=== PATIENT | male | born 1980 | race Caucasian/White ===

== ENCOUNTER 2022-12-03 14:21 | Emergency (ER) | payer MEDICARE, MEDICAID, SELFPAY ==
[2022-12-03] VITALS (7 sets, daily range): BP systolic 165–172; BP diastolic 111–114; PULSE 87–97; RESP 18; TEMP 36.5–36.6; O2SAT 98–100; BMI 26.8
--- NOTE | 2022-12-03 14:47 | XRR_ITS ---
PROCEDURE INFORMATION: Exam: XR Left Hip Exam date and time: 12/03/2022 2:51 PM Age: 41 years old Clinical indication: Hip pain; Left hip; Additional info: Pain/one view pelvis too please TECHNIQUE: Imaging protocol: Radiologic exam of the left hip. Views: 2 or 3 views hip with pelvis when performed. COMPARISON: No relevant prior studies available. FINDINGS: Bones/joints: No acute fracture or dislocation. Focal convexity at bilateral femoral head-neck junctions. Joint spacing and alignment are maintained. Mild lower lumbar spine degenerative changes. Soft tissues: Unremarkable. XR/XR hip LT 2-3V wo/w pel* [id number] IMPRESSION: 1. No acute fracture or dislocation. 2. Bilateral cam morphology.
--- NOTE | 2022-12-03 14:48 | W.ED.EXTPRO ---
HPI - Extremity Problem General: Chief complaint: Extremity Problem,Nontraumatic Stated complaint: Hip pain Joint pain X 3 weeks Time Seen by Provider: 12/03/22 14:23 Source: patient Mode of arrival: wheelchair Limitations: no limitations History of Present Illness: Patient is a 41-year-old male who presents to ED today with a complaint of left hip pain over the past 3 weeks. He states he did not have any known injury or trauma to the joint prior to it hurting. He states over 3 weeks. Pain has progressively worsened and over the past few days he has been unable to ambulate secondary to pain. He states he was seen at a walk-in facility a few days ago and given prescriptions for oxycodone, flexeril, and prednisone-he states these are not helping. Patient reports a longstanding history of chronic back pains. He chronically uses a cane for ambulation. He has had issues with his sciatica in the past. He feels like the pain in his hip joint is not originating from his back. Patient is not running fevers. He has not noticed any redness or warmth to the joint. No recent illness. No drug use. MD Complaint: joint pain Onset (ago): week(s) Pain Consistency: constant Location: left and lower extremity Severity scale (1-10): 10 Radiation: none Relieving factors: other (reports leaning over a table or truck bed with his legs dangling over the side) Exacerbating factors: range of motion and weight bearing Associated symptoms: Reports no associated symptoms; Deny chest pain, fever(s) or rash Review of Systems Const: Denies: fever(s), chills, body aches, fatigue or malaise Card: Denies: chest pain Resp: Denies: dyspnea GI: Denies: abdominal pain : Denies: flank pain, dysuria or hematuria Musc: Reports: back pain (chronic), joint pain and limited range of motion; Denies: neck pain, extremity pain, extremity swelling, joint swelling, joint redness or joint warmth Skin/Breast: Denies: rash Neuro: Reports: difficulty walking; Denies: headache(s), numbness in extremities, weakness in extremities, sensory changes or lack of coordination Physical Exam Const: COMMON NORMALS: average body habitus, patient oriented x3, no limitations, healthy appearing, alert and well nourished GENERAL APPEARANCE: cooperative and in distress (appears uncomfortable secondary to pain) ORIENTATION/CONSCIOUSNESS: Yes awake, Yes oriented to person, Yes oriented to place and Yes oriented to time HENMT: COMMON NORMALS: normocephalic and atraumatic HEAD & SCALP: normal to inspection, normocephalic and atraumatic Back/Pelvis: COMMON NORMALS: thoracic and lumbar spine normal to inspection, no thoracic nor lumbar tenderness and thoraco-lumbar ROM normal LUMBAR SPINE/LOWER BACK: No lumbar spinal tenderness, No paraspinal muscle tenderness, No paraspinal muscle spasm and Yes straight leg raise negative bilaterally PELVIS: Yes buttocks normal and Yes sciatic notch tenderness SACRUM: no tenderness COCCYX: no tenderness Extremity: COMMON NORMALS: normal to inspection, capillary refill normal, no joint enlargement, no clubbing, cyanosis or edema and no calf tenderness GENERAL: Yes normal exam except as noted LEFT LOWER EXTREMITY: Yes hip joint Left hip: Yes inspection (no erythema/warmth noted), Yes ROM (limited ROM secondary to pain; + FABIR testing) and Yes neurovascular exam (normal) Neuro: COMMON NORMALS: patient oriented x3, moves all extremities, no focal motor deficits and no sensory deficits noted SENSORIUM/ORIENTATION: Yes alert, Yes oriented to person, Yes oriented to place and Yes oriented to time GAIT: Yes Unable to assess gait MOTOR EXAM: 5/5 motor strength present throughout DEEP TENDON REFLEXES: Right patellar reflex intensity grade: 2+, Left patellar reflex intensity grade: 2+, Right ankle reflex intensity grade: 2+ and Left ankle reflex intensity grade: 2+ Course Vital Signs: Vital signs: Vital Signs Temperature 97.9 F 12/03/22 14:34 Pulse Rate 97 12/03/22 14:29 Respiratory Rate 18 12/03/22 15:46 Blood Pressure 172/113 12/03/22 16:00 Pulse Oximetry 99 12/03/22 15:04 Oxygen Delivery Me thod Room Air 12/03/22 15:04 MDM - Extremity (Nontraumatic) Medical Decision Making Patient is a 41-year-old male here for complaints of left hip pain over the past 3 weeks. At this time there is nothing on patient's history and physical exam to suggest emergent process such as septic arthritis or aortoiliac insufficiency. Neurologically he is intact. XR showing cam morphology to femoral head raising suspicion for femoral acetabular impingement. He did have pain with FADIR testing. Will place referral to orthopedics for further evaluation/management. Lab Data Radiology Impressions Hip/Pelvis X-Ray 12/03/22 14:47 IMPRESSION: 1. No acute fracture or dislocation. 2. Bilateral cam morphology. 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 Condition: Stable Prescriptions: New Valium 5 mg tablet 5 mg PO TID PRN (Reason: muscle spasm) Qty: 15 0RF Continued ibuprofen 800 mg tablet 800 mg PO Q8H prednisone 20 mg tablet 60 mg PO DAILY 5 Days Qty: 15 0RF oxycodone-acetaminophen [Percocet] 5-325 mg tablet 1 tab PO Q4H PRN (Reason: pain) 7 Days Qty: 28 0RF Discontinued hydrocodone-acetaminophen 5-300 mg tablet 1 tab PO Q8H PRN (Reason: Pain) cyclobenzaprine 10 mg tablet 10 mg PO TID PRN (Reason: muscle spasm) Qty: 30 0RF No Action B Complete Tablet 1 tab PO DAILY potassium citrate 99 mg Capsule 99 mg PO DAILY Rx Instructions: otc version Discharge Orders: Discharge ED (Routine); Ordered 12/03/22 Ordered By: Noemi Luque Referrals: Hussain Rosenthal [Referring] - Patient Instructions: Hip Impingement (ED), Opioid Safety, Pain Management Activity Restrictions/Additional Instructions: As we discussed case management should reach out to you early this week to help set you up with your follow-up orthopedic appointment for further evaluation and treatment of your hip pain. Coding Level of Care Code ED Relocation Director for Clare Tobias
[2022-12-03] MEDS: morphine 4 mg/mL SDV 1 mL IVP (14:59)
[2022-12-03] MEDS: diazePAM 5 mg Tablet PO (15:01)
[2022-12-03] MEDS: ketorolac 60 mg/2 mL INJ 30 MG IVP (15:01)
[2022-12-03] MEDS: dexamethasone 10 mg/mL INJ 8 MG IV (15:02)
[2022-12-03] MEDS: HYDROmorphone 1 mg/mL INJ 1 mL IVP (15:46)
[2022-12-03] MEDS: orphenadrine 30 mg/mL Inj 2 mL 60 MG IVP (16:25)
--- NOTE | 2022-12-05 07:32 | DCPLANNER ---
Addendum entered by Nina Yan 12/09/22 08:55: Patient had a follow up appointment scheduled with ortho - patient did attend appointment. Addendum entered by Nina Yan 12/06/22 10:47: Patient has a follow up appointment scheduled for Tuesday, December 06, 2022 at 11:15 with Ruddy at ortho. Original Note: janitorial account manager had message to schedule a follow up appointment for patient with ortho. janitorial account manager sent patients information to the front office staff at ortho. Patients information will be printed and reviewed. Clinic will call patient with appointment information.
--- NOTE | 2022-12-06 10:36 | DCPLANNER ---
training program manager was triggered to call patient due to no primary care physician - patient has a establishing appointment scheduled for December.
== END 2022-12-03 16:59 | disposition home or self-care (01) ==
PROVIDERS: Emergency Provider Physician Assistant
DX: M25.852 Other specified joint disorders, left hip (principal)
CPT/HCPCS: 73502; 96374; 96375; 99284; 99291; J1100; J1170; J1885; J2270; J2360

== ENCOUNTER → 2022-12-06 11:01 | Outpatient (BNVA) | payer MEDICARE, MEDICAID, SELFPAY | PROVIDERS: Referring Provider Physician Assistant; Visit Provider Nurse Practitioner Family | DX: M54.50 Low back pain, unspecified (principal); M79.605 Pain in left leg; M25.852 Other specified joint disorders, left hip | CPT/HCPCS: 99214 ==

== ENCOUNTER 2022-12-07 16:23 | Outpatient (CLI) | payer MEDICARE, MEDICAID, SELFPAY ==
--- NOTE | 2022-12-07 16:45 | MR_ITS ---
WS: [id number] MRI LUMBAR SPINE NONCONTRAST TECHNIQUE: Sagittal T1, T2 and STIR imaging. Axial T1 and T2 imaging. CLINICAL INFORMATION: lumbar pain COMPARISON: None. FINDINGS: Mild lumbar curve. No acute compression. Disc bulging worse L4-L5 and L5-S1. L1-L2: Mild facet arthropathy. Spinal canal and foramen are patent. L2-L3: No significant disc bulging. Mild facet arthropathy. Spinal canal and foramen are patent. L3-L4: Minimal annular bulging. Mild facet arthropathy. Tiny RIGHT foraminal protrusion with mild RIG HT foraminal narrowing. L4-L5: LEFT central and pericentral disc protrusion impinges the traversing LEFT greater than RIGHT L 5 nerve roots in the subarticular recess. Moderate central canal stenosis. Moderate facet arthropathy . Mild LEFT greater than RIGHT foraminal narrowing. L5-S1: Shallow RIGHT pericentral protrusion impinges the traversing S1 nerve root in the subarticular recess. Moderate facet arthropathy. Mild central canal stenosis. Foramen are patent. Visualized pelvic bony structures: Normal. Paravertebral soft tissues: Normal. MR/MR lumbar spine wo con* [id number] IMPRESSION: 1. Mild lumbar curve. No acute compression. 2. Moderate to severe central canal stenosis L4-L5 with a central LEFT pericen tral disc protrusion. This impinges the traversing LEFT greater than RIGHT L5 n erve roots in the subarticular recess. 3. Mild LEFT L4-L5 foraminal narrowing. 4. Shallow RIGHT subarticular protrusion L5-S1 impinges the traversing S1 nerv e root in the subarticular recess 5. Tiny RIGHT foraminal protrusion L3-L4 with mild RIGHT foraminal narrowing. 6. Moderate facet arthropathy L3-L5.
== END 2022-12-07 16:24 | disposition home or self-care (01) ==
PROVIDERS: Visit Provider Nurse Practitioner Family
DX: M51.27 Other intervertebral disc displacement, lumbosacral region (principal); M79.605 Pain in left leg; M48.061 Spinal stenosis, lumbar region without neurogenic claudication; M47.816 Spondylosis without myelopathy or radiculopathy, lumbar region
CPT/HCPCS: 72148; 99214

== ENCOUNTER → 2022-12-20 08:27 | Outpatient (BNVA) | payer MEDICARE, MEDICAID, SELFPAY | PROVIDERS: PCP Family Medicine; Visit Provider Physician Assistant | DX: M79.605 Pain in left leg; M48.061 Spinal stenosis, lumbar region without neurogenic claudication; Z01.818 Encounter for other preprocedural examination | CPT/HCPCS: 36415; 72110; 80053; 81003; 83036; 85025; 99203 ==

== ENCOUNTER 2022-12-23 07:08 | Outpatient (CLI) | payer MEDICARE, MEDICAID, SELFPAY ==
--- NOTE | 2022-12-23 07:15 | MR_ITS ---
WS: [id number] EXAMINATION: MR hip LT wo con* [id number] ORDER DATE: 12/23/2022 7:15 AM COMPARISON: None. HISTORY: cam morphology CONTRAST: Comparison 12/03/2022 TECHNIQUE: Coronal STIR of the Pelvis. Coronal proton density, coronal T1, axial T2 fat sat, axial T1 , sagittal T2 fat sat, and sagittal T1 performed of the hip. FINDINGS: Bilateral femoral neck and morphology unchanged as the prior radiograph. Osseous prominence at the fe moral head-neck junction compatible with CAM femoral acetabular impingement morphology. This is sligh tly more pronounced on the right. Mild irregularity of the anterior superior labrum bilaterally right greater than left. No subchondral cystic change in the femoral head or acetabulum. Normal bone marrow signal in the femoral heads and neck. No acute edema. Mild degenerative narrowing both hips. No significant joint effusion. No evidence of avascular necrosis. Visualized pubic rami ap pear normal. Normal bone marrow signal in the sacrum and pelvic bony structures. Normal iliac wings. A few prominent left inguinal lymph nodes likely reactive. Subcutaneous edema in the left inguinal re gion. No fluid collections. IMPRESSION: * Bilateral femoral head neck CAM morphology with bony prominence at the anterosuperior head-neck ju nction and mild irregularity of the right greater than left anterosuperior labrum. * No evidence of underlying edema in the femoral head neck or acetabulum. No subchondral cystic pettit ges. * No evidence of avascular necrosis. * Normal sacrum and iliac wings.
== END 2022-12-23 07:09 | disposition home or self-care (01) ==
PROVIDERS: PCP Family Medicine; Visit Provider Nurse Practitioner Family
DX: M25.852 Other specified joint disorders, left hip (principal)
CPT/HCPCS: 73721

== ENCOUNTER 2022-12-30 12:46 | Observation (INO) | payer MEDICARE, MEDICAID, SELFPAY ==
[2022-12-29 10:24] VITALS: BMI 26.8
[2022-12-30] VITALS (23 sets, daily range): BP systolic 128–166; BP diastolic 77–120; PULSE 70–101; RESP 15–20; TEMP 36.3–36.9; O2SAT 95–100
--- NOTE | 2022-12-30 | XR_ITS ---
WS: [id number] EXAMINATION: XR lumbar spine 1V [id number] REASON FOR EXAM: open decompression L4-S1 COMPARISON: None available. ORDER DATE: 12/30/2022 12:00 AM FINDINGS: Surgical instrumentation superimposes the L4 to upper sacral level for disc localization for surgical intervention IMPRESSION: Total fluoroscopy time 7.8 seconds
--- NOTE | 2022-12-30 09:55 | W.PM.OPSUD ---
Surgery/Procedure H&P Update DATE OF PROCEDURE: December 30, 2022 DATE H&P PERFORMED: 12/20/22 H&P UPDATE INFORMATION: I have reviewed H&P completed within last 30 days, I have examined patient prior to procedure and No changes to prior documentation PREOP DIAGNOSIS: Lumbar stenosis, HNP L4-5, L5-S1 PLANNED PROCEDURE: Operation Date: 12/30/22 10:55 Proposed Procedures p [id number]: Open decompression of the L4/5 and L5-S1(L5-S1) level M51.27:Herniation of intervertebral disc between L5-S1,m51.26: Hernated nucleus pulposus L4/5, M48.062: Lumbar Stenosis(Not Applicable) - Tyrone Florez, DO
[2022-12-30] MEDS: sodium chloride 0.9% 1,000 ML 30 ML IV (09:59)
[2022-12-30] MEDS: ceFAZolin 2,000 MG in sodium chloride 0.9% (plus) 50 ML 100 MG IV ×2 (10:17→18:46)
[2022-12-30] MEDS: lidocaine-epi 2% 20 mL INJ INJECTION (10:40)
[2022-12-30] MEDS: vancomycin 1,000 MG SDV 1000 MG INTRA-ARTI (10:55)
--- NOTE | 2022-12-30 10:57 | ANES.PREANE2 ---
Pre-Anesthetic Assessment Height/Weight: Height 1.88 m Weight 94.801 kg Temp Pulse Resp BP Pulse Ox O2 Del Method 98.4 F 96 16 137/98 100 Room Air 12/30/22 09:41 12/30/22 09:41 12/30/22 09:41 12/30/22 09:41 12/30/22 09:41 12/30/22 09:41 Preop Diagnosis: Lumbar stenosis, HNP L4-5, L5-S1 Operation Date: 12/30/22 10:55 Proposed Procedures p [id number]: Open decompression of the L4/5 and L5-S1(L5-S1) level M51.27:Herniation of intervertebral disc between L5-S1,m51.26: Hernated nucleus pulposus L4/5, M48.062: Lumbar Stenosis(Not Applicable) - Tyrone Florez DO Familial anesthetic complications: none Was Beta Donavan taken within 24 hours: N/A Was Clonidine taken within 24 hours: N/A Last intake: Intake Last Liquid Date 12/29/22 Last Liquid Time 21:30 Last Solid Date 12/29/22 Last Solid Time 18:00 Social Tobacco and No alcohol Exam alert, oriented x 3, clear to auscultation bilaterally and regular rate & rhythm Airway Submandibular: within normal limits Cervical ROM: within normal limits Mallampati: Class II Dentition: chipped Musc/skel Lower Back Pain Anesthetic Plan ASA status: 2 Anesthesia: General Medications/Allergies Home Medications Medication Instructions Recorded Confirmed Last Taken Type ibuprofen 800 mg tablet 800 mg PO Q8H 12/01/22 12/29/22 12/27/22 History potassium citrate 99 mg capsule 99 mg PO DAILY 12/03/22 12/30/22 12/23/22 History vitamin B complex 1 tab PO DAILY 12/03/22 12/30/22 12/23/22 History pregabalin 50 mg capsule (Lyrica) 50 mg PO BID #30 caps 12/16/22 12/29/22 12/29/22 Rx cyclobenzaprine 10 mg tablet 10 mg PO TID PRN back pain #30 tabs 12/20/22 12/30/22 12/29/22 Rx tramadol 50 mg tablet 50 mg PO Q4H PRN pain #30 tabs 12/20/22 12/29/22 12/29/22 Rx Allergies Allergy/AdvReac Type Severity Reaction Status Date / Time No Known Allergies Allergy Verified 12/30/22 09:39 Current Medications Generic Name Dose Route Start Last Admin Trade Name Christiano PRN Reason Stop Dose Admin Sodium Chloride 1,000 mls @ 30 mls/hr 12/30/22 09:30 12/30/22 09:59 Sodium Chloride 0.9% IV 12/31/22 09:29 30 mls/hr .Q24H ARLYN Administration PFSH Anesthesia Medical History DDD (degenerative disc disease), lumbar Herniated nucleus pulposus, L4-5 Herniated nucleus pulposus, L5-S1 Lumbar pain with radiation down left leg Surgical History No pertinent past surgical history Family History Other Diabetes Hyperlipidemia Hypertension Denies family history of CAD (coronary artery disease) Clotting disorder Dementia Psychiatric illness Chronic kidney disease (CKD) Anesthesia complication Bleeding disorder Lung disease Cancer Stroke Social History Smoking and tobacco status: current some day smoker cigars Alcohol intake: current Alcohol intake frequency: few times a month Alcohol type: beer Substance/Drug Use: never Lives independently: Yes Marital status: Number of children: 3 Current occupational status: disabled Special bharathi needs: No Agree to transfusion: Yes Data Anesthesia Cardiac Studies: No Data to Display
--- NOTE | 2022-12-30 12:22 | PM.OP ---
Operative Report Date of procedure: December 30, 2022 Pre-op diagnosis: Preop Diagnosis Lumbar stenosis, HNP L4-5, L5-S1, radiculopathy Post-op diagnosis: same Procedure done: 1. L4-5 laminectomy with partial facetectomies and discectomy 2. L5-S1 laminectomy with partial facetectomies and discectomy Surgeon: Tyrone Florez Transportation Operations Manager: none Estimated blood loss (mL): 150 Procedure: 1. L4-5 laminectomy with partial facetectomies and discectomy 2. L5-S1 laminectomy with partial facetectomies and discectomy Patient was brought to the operative suite after going anesthesia was placed in the prone position. All his impingement well-padded. Patient's prepped draped in a sterile fashion. Skin incision was made from L4 down to S1. Thoracolumbar fascia was identified and split. The subperiosteal dissection was made out to the L4-5 and L5-S1 facets. Retractors were placed. Microscope was brought in. Attention was first brought to the L4-5 level. The high-speed bur was used to take down the lamina as well as the spinous process. The medial aspect of facet joints were taken down with a high-speed bur as well. The Kerrison rongeur was then used to take the remaining lamina and medial aspect of facet joints. The L4 nerve was traced outside the L4-5 foramen this was done bilaterally. A D'Errico retractor was then used to retract the L5 nerve root on the left side. Disc was identified and microdiscectomy was performed using the curved curette and the micropituitary. This space was irrigated. All loose fragments were removed. L5 nerve was then traced around the L5 pedicle bilaterally. Next attention was brought to the L5-S1 level. Again the spinous process was taken down and then the lamina was performed using high-speed bur as well as taken down the medial aspects of the facet joints at L5-S1. The Kerrison rongeur was then used to take down the remaining lamina as well as medial aspect of the facet joint bilaterally. A D'Errico was then placed to retract the S1 nerve root and the this was done on the right side discectomy was performed using a knife and micropituitary and again the disc base was irrigated. The L5 nerve was traced around the L5-S1 foramen. And the S1 nerves were traced around the S1 pedicles bilaterally. Wounds were irrigated deep drain was placed vancomycin powder was placed wound closed in layered fashion with 0 Vicryl 2-0 Vicryl and Monocryl suture. Sterile dressings were applied patient was transferred to the PACU in stable condition.
[2022-12-30] MEDS: fentaNYL 50 mcg/mL INJ 2mL IVP (13:12)
[2022-12-30] MEDS: HYDROcodone-acetaminophen 5-325 mg Tablet PO ×3 (14:43→23:52)
[2022-12-30] MEDS: lactated ringers 1,000 ML 90 ML IV ×2 (14:44→23:52)
[2022-12-30] MEDS: cyclobenzaprine 10 mg Tablet PO (14:44)
[2022-12-30] MEDS: ketorolac 30 mg/mL INJ IVP (14:44)
--- NOTE | 2022-12-30 15:00 | ANE.PACU2 ---
Inpatient post-anesthesia follow up: Airway intact: Yes Vital signs: Temperature 97.8 F Pulse Rate 71 Respiratory Rate 18 Blood Pressure 159/100 Pulse Oximetry 97 Oxygen Delivery Me thod Room Air Oxygen Flow Rate 8 Fraction of Inspir ed Oxygen Hydration adequate: Yes Nausea and vomiting: No Pain level: 3 Mental status: Baseline
[2022-12-30] MEDS: cloNIDine 0.1 mg Tablet PO (16:29)
[2022-12-30] MEDS: morphine 4 mg/mL SDV 1 mL 2 MG IVP ×2 (16:31→21:49)
[2022-12-30] MEDS: pregabalin 50 mg Capsule PO (18:46)
[2022-12-30] MEDS: docusate sodium 100 mg Capsule PO (18:46)
[2022-12-31] MEDS: ceFAZolin 2,000 MG in sodium chloride 0.9% (plus) 50 ML 100 MG IV (02:56)
[2022-12-31 05:15] VITALS: BP 144/89; PULSE 86; RESP 19; TEMP 36.7; O2SAT 99
[2022-12-31 08:00] VITALS: BP 149/91; PULSE 85; RESP 18; TEMP 36.6; O2SAT 99
[2022-12-31] MEDS: docusate sodium 100 mg Capsule PO (08:47)
[2022-12-31] MEDS: HYDROcodone-acetaminophen 5-325 mg Tablet PO (08:47)
--- NOTE | 2022-12-31 10:48 | P.DS_ITS ---
Discharge Providers Date of Admission: 12/30/22 12:46 Date of Discharge: December 31, 2022 Attending Provider at Admission: Tyrone Florez DO Attending Provider at Discharge: Tyrone Florez DO Primary Care Provider: Jairon Adrian MD Physical Exam Narrative: Patient sitting up comfortable in chair doing well Strength. Discharge Data Studies Completed and Pending Completed Studies During Hospitalization Category Date Time Status XR lumbar spine 1V 11154 Routine Exams 12/30/22 Completed Pending at discharge Category Date Time Status C-arm Fluoroscopy 17256 Routine Exams 12/30/22 09:27 Taken Vitals Last Vital Signs Temp 97.9 F 12/31/22 08:00 Pulse 85 12/31/22 08:00 Resp 18 12/31/22 08:00 BP 149/91 12/31/22 08:00 Pulse Ox 99 12/31/22 08:00 O2 Del Method Room Air 12/31/22 08:00 O2 Flow Rate 8 12/30/22 12:39 Discharge Plan Discharge Condition: Stable Prescriptions: New hydrocodone-acetaminophen 5-325 mg tablet 1 - 2 tab PO .Q4-6H Qty: 40 0RF cyclobenzaprine 10 mg tablet 10 mg PO BID PRN (Reason: muscle spasm) 30 Days Qty: 60 0RF Lyrica 50 mg capsule 50 mg PO BID 30 Days Qty: 60 0RF Continued ibuprofen 800 mg tablet 800 mg PO Q8H tramadol 50 mg tablet 50 mg PO Q4H PRN (Reason: pain) Qty: 30 0RF cyclobenzaprine 10 mg tablet 10 mg PO TID PRN (Reason: back pain) Qty: 30 0RF pregabalin [Lyrica] 50 mg capsule 50 mg PO BID Qty: 30 0RF vitamin B complex Tablet 1 tab PO DAILY potassium citrate 99 mg Capsule 99 mg PO DAILY Rx Instructions: otc version Discharge Orders: Discharge Order (Routine); Ordered 12/31/22 Ordered By: Tyrone Florez Other Ambulatory Orders: Physical Therapy Eval and Treat Outpatient (Order) Timeframe: 1 Month Facility: [facility] - Location: Physical Therapy Ordered By: Tyrone Florez Discharge Diet: Advance as tolerated Discharge Activity: Limit activity as instructed Patient Instructions: Opioid Safety Activity Restrictions/Additional Instructions: [facility] The following is a list of instructions, from your provider, to follow upon your discharge to ensure you have the optimal recovery from your recent injury orsurgery. Follow-up care is a mi part of your treatment and safety. Be sure to make and go to all appointments, and call your doctor if you are having problems. If you do not already have a follow-up appointment made, call Dr. Florez office in the next 1-3 days to make follow up appointment for 2 weeks at [phone]. It is also a good idea to know your test results and keep a list of the medicines you take. Medications will be prescribed for you at your provider's discretion. These medications are to be used as instructed; if they are taken more often that prescribed they will not be refilled early and in most cases will not be refilled at all. > When a refill is needed,you should contact tammy johnson 2-3 business days before your prescription runs out. Medications will NOT be refilled by iron molder helper providers after hours! > Many pain medications contain Tylenol (Acetaminophen). Do not consume more than 4,000 mg of Tylenol per day in total with any combination ofmedications. > Pain medications can cause constipation. Please use an over the counter stool softener as directed, while taking pain medications. Consulty our local pharmacist with questions or recommendations on stool softeners. If constipation persists, contact our office or your primary care provider. > While under our care,you are not to receive pain medications or other controlled substances from any other provider unless our office is notified and approves. Any attempts to do so will result in refusal to prescribe any further pain medications and possible dismissal from our practice. ? Your wound and/or dressing should remain clean and dry for 2 days after surgery. On postoperative day 2 (48 hours after your surgery) the dressing (if present) should be removed and it is okay to shower and get the incision wet. Pad dry afterwards. No further dressing should be required from that point on. Do not put any creams or ointments on theincision > It is normal for there to be a small amount of discharge (bloody or blood tinged) present from a surgical wound for the first 1-3days. > The wound should be examined twice a day for signs of infection. Mild redness or bruising is to be expected but indications that an infection maybe starting would include; An increase in redness, swelling, or discharge, a foul odor present around the incision, and/or a fever greater than 101 ?F ? Showering is permitted, however we ask that you do not take a bath, sit in a whirlpool / Jacuzzi, or go swimming for 1 month. For only the first 2 days after surgery, lt wilt be necessary for you to cover your wound/dressing with plastic and tape to keep it dry. ? Walking is essential for the healing process after surgery. We would like you to slowly advance your walking. This should be done on relatively flat clear ground (inside or out) or can be done on a treadmill. Remember this goal does not have to happen all at once, slowly increase your distance and duration. This can be broken into more more than one walk per day as tolerated. Patients who walk as directed after surgery rarely require Physical Therapy. In the unlikely event this issue arises your provider will direct hospital staff to make the appropriate arrangements. ? No lifting over 5 pounds {a gallon of milk) or bending/twisting until further notice. Each of these activities places an unnecessary amount of stress onto the body and can impede the delicate healing process. > Instead of bending at the waist, keep your back straight and bend at the knees. > Instead of twisting your torso, keep your back straight and turn your entire body with your feet. ? You may sleep in any position which makes you comfortable. Many patients find comfort sleeping in a reclining chair. It is not abnormal to have difficulty sleeping for the first several weeks following your surgery. We recommend trying Benadry! or Tylenol PM as directed to help with your sleeping difficulties. Both medications are over the counter and available withoutprescription. ? NO SMOKING!!! Smoking dramatically increases the probability of developing postoperative wound infections. ? Common complaints after lumbar and/or thoracic spine surgery include, but are not limited to: numbness and/or tingling in the legs, pain around the incision and surrounding tissues, muscle spasms, or stiffness of the middle to low back. Contact our office if these symptoms persist or if an acute change occurs. ? No driving for the first 3-5days, and not while taking narcotics until seen at your follow-up appointment and cleared. There are no restrictions for riding on short trips, however if you take a longer trip, arrangements should be made to make regular stops to get out of the vehicle and stretch . ? Swelling is an unfortunate event that will take place with any surgery and is the primary source of your postoperative discomfort. While walking and regular approved activities helps control inflammation, there are additional steps you can take to minimizeswelling. > Place ice over the surgical site and surrounding tissue for twenty minutes, followed by applying a low/medium heat (heating pad) for an additional twenty minutes every 1-2 hours as needed for painrelief. > You may use of over the counter anti-inflammatory medications (Ibuprofen, Motrin, Aleve, Advil, etc) as directed on the package label. These types of medicines wm significantly reduce the amount of discomfort you experience after surgery from swelling. It should be noted that if you have and allergy to any of these medications, or a history of ulcers or kidney disease you should consult you primary care provider prior to starting these medications. Discharge Attestations Time Spent in Discharge Care*: less than 30 min Quality Metrics Clinical Quality Measures [ No reported AMI, CVA or VTE this stay] Coding Level of Care Code Acute Code for Chg Fwd Diagnoses
--- NOTE | 2022-12-31 10:49 | P.DS_ITS ---
Discharge Providers Date of Admission: 12/30/22 12:46 Date of Discharge: December 31, 2022 Attending Provider at Admission: Tyrone Florez DO Attending Provider at Discharge: Tyrone Florez DO Primary Care Provider: Jairon Adrian MD Physical Exam Narrative: Patient sitting in chair comfortable 5 5 strength. Discharge Data Studies Completed and Pending Completed Studies During Hospitalization Category Date Time Status XR lumbar spine 1V 86761 Routine Exams 12/30/22 Completed Pending at discharge Category Date Time Status C-arm Fluoroscopy 19652 Routine Exams 12/30/22 09:27 Taken Vitals Last Vital Signs Temp 97.9 F 12/31/22 08:00 Pulse 85 12/31/22 08:00 Resp 18 12/31/22 08:00 BP 149/91 12/31/22 08:00 Pulse Ox 99 12/31/22 08:00 O2 Del Method Room Air 12/31/22 08:00 O2 Flow Rate 8 12/30/22 12:39 Discharge Plan Discharge Condition: Stable Prescriptions: New hydrocodone-acetaminophen 5-325 mg tablet 1 - 2 tab PO .Q4-6H Qty: 40 0RF cyclobenzaprine 10 mg tablet 10 mg PO BID PRN (Reason: muscle spasm) 30 Days Qty: 60 0RF Lyrica 50 mg capsule 50 mg PO BID 30 Days Qty: 60 0RF Continued ibuprofen 800 mg tablet 800 mg PO Q8H tramadol 50 mg tablet 50 mg PO Q4H PRN (Reason: pain) Qty: 30 0RF cyclobenzaprine 10 mg tablet 10 mg PO TID PRN (Reason: back pain) Qty: 30 0RF pregabalin [Lyrica] 50 mg capsule 50 mg PO BID Qty: 30 0RF vitamin B complex Tablet 1 tab PO DAILY potassium citrate 99 mg Capsule 99 mg PO DAILY Rx Instructions: otc version Discharge Orders: Discharge Order (Routine); Ordered 12/31/22 Ordered By: Tyrone Florez Other Ambulatory Orders: Physical Therapy Eval and Treat Outpatient (Order) Timeframe: 1 Month Facility: [facility] - Location: Physical Therapy Ordered By: Tyrone Florez Discharge Diet: Advance as tolerated Discharge Activity: Limit activity as instructed Patient Instructions: Opioid Safety Activity Restrictions/Additional Instructions: Thank you for [facility] for your care! The following is a list of instructions, from your provider, to follow upon your discharge to ensure you have the optimal recovery from your recent injury orsurgery. Follow-up care is a mi part of your treatment and safety. Be sure to make and go to all appointments, and call your doctor if you are having problems. If you do not already have a follow-up appointment made, call Dr. Florez office in the next 1-3 days to make follow up appointment for 2 weeks at [phone]. It is also a good idea to know your test results and keep a list of the medicines you take. Medications will be prescribed for you at your provider's discretion. These medications are to be used as instructed; if they are taken more often that prescribed they will not be refilled early and in most cases will not be refilled at all. > When a refill is needed,you should contact tammy johnson 2-3 business days before your prescription runs out. Medications will NOT be refilled by conventions reservationist providers after hours! > Many pain medications contain Tylenol (Acetaminophen). Do not consume more than 4,000 mg of Tylenol per day in total with any combination ofmedications. > Pain medications can cause constipation. Please use an over the counter stool softener as directed, while taking pain medications. Consulty our local pharmacist with questions or recommendations on stool softeners. If constipation persists, contact our office or your primary care provider. > While under our care,you are not to receive pain medications or other controlled substances from any other provider unless our office is notified and approves. Any attempts to do so will result in refusal to prescribe any further pain medications and possible dismissal from our practice. ? Your wound and/or dressing should remain clean and dry for 2 days after surgery. On postoperative day 2 (48 hours after your surgery) the dressing (if present) should be removed and it is okay to shower and get the incision wet. Pad dry afterwards. No further dressing should be required from that point on. Do not put any creams or ointments on theincision > It is normal for there to be a small amount of discharge (bloody or blood tinged) present from a surgical wound for the first 1-3days. > The wound should be examined twice a day for signs of infection. Mild redness or bruising is to be expected but indications that an infection maybe starting would include; An increase in redness, swelling, or discharge, a foul odor present around the incision, and/or a fever greater than 101 ?F ? Showering is permitted, however we ask that you do not take a bath, sit in a whirlpool / Jacuzzi, or go swimming for 1 month. For only the first 2 days after surgery, lt wilt be necessary for you to cover your wound/dressing with plastic and tape to keep it dry. ? Walking is essential for the healing process after surgery. We would like you to slowly advance your walking. This should be done on relatively flat clear ground (inside or out) or can be done on a treadmill. Remember this goal does not have to happen all at once, slowly increase your distance and duration. This can be broken into more more than one walk per day as tolerated. Patients who walk as directed after surgery rarely require Physi ramiro Therapy. In the unlikely event this issue arises your provider will direct hospital staff to make the appropriate arrangements. ? No lifting over 5 pounds {a gallon of milk) or bending/twisting until further notice. Each of these activities places an unnecessary amount of stress onto the body and can impede the delicate healing process. > Instead of bending at the waist, keep your back straight and bend at the knees. > Instead of twisting your torso, keep your back straight and turn your entire body with your feet. ? You may sleep in any position which makes you comfortable. Many patients find comfort sleeping in a reclining chair. It is not abnormal to have difficulty sleeping for the first several weeks following your surgery. We recommend trying Benadry! or Tylenol PM as directed to help with your sleeping difficulties. Both medications are over the counter and available withoutprescription. ? NO SMOKING!!! Smoking dramatically increases the probability of developing postoperative wound infections. ? Common complaints after lumbar and/or thoracic spine surgery include, but are not limited to: numbness and/or tingling in the legs, pain around the incision and surrounding tissues, muscle spasms, or stiffness of the middle to low back. Contact our office if these symptoms persist or if an acute change occurs. ? No driving for the first 3-5days, and not while taking narcotics until seen at your follow-up appointment and cleared. There are no restrictions for riding on short trips, however if you take a longer trip, arrangements should be made to make regular stops to get out of the vehicle and stretch . ? Swelling is an unfortunate event that will take place with any surgery and is the primary source of your postoperative discomfort. While walking and regular approved activities helps control inflammation, there are additional steps you can take to minimizeswelling. > Place ice over the surgical site and surrounding tissue for twenty minutes, followed by applying a low/medium heat (heating pad) for an additional twenty minutes every 1-2 hours as needed for painrelief. > You may use of over the counter anti-inflammatory medications (Ibuprofen, Motrin, Aleve, Advil, etc) as directed on the package label. These types of medicines wm significantly reduce the amount of discomfort you exper ience after surgery from swelling. It should be noted that if you have and allergy to any of these medications, or a history of ulcers or kidney disease you should consult you primary care provider prior to starting these medications. Discharge Attestations Time Spent in Discharge Care*: less than 30 min Quality Metrics Clinical Quality Measures [ No reported AMI, CVA or VTE this stay] Coding Level of Care Code Acute Code for Chg Fwd Diagnoses
[2022-12-31] MEDS: pregabalin 50 mg Capsule PO (10:51)
[2022-12-31 12:00] VITALS: BP 155/106; PULSE 80; RESP 24; TEMP 36.4; O2SAT 99
[2022-12-31 13:29] VITALS: BP 148/94; PULSE 80; RESP 24; TEMP 36.4; O2SAT 99
== END 2022-12-31 12:25 | disposition home or self-care (01) ==
LOC: MEDSURG 12:46
PROVIDERS: Admitting Provider Orthopaedic Surgery; PCP Family Medicine; Visit Provider Orthopaedic Surgery
PROC: (CPT 63001; principal; 2022-12-30 10:45)
DX: M48.062 Spinal stenosis, lumbar region with neurogenic claudication (principal); M51.16 Intervertebral disc disorders with radiculopathy, lumbar region; M51.17 Intervertebral disc disorders with radiculopathy, lumbosacral region; F17.290 Nicotine dependence, other tobacco product, uncomplicated
CPT/HCPCS: 63047; 63048; 72020; 76000; 97110; 97116; 97161; 97530; G0378; J0131; J0690; J1100; J1170; J1885; J2250; J2270; J2405; J2704; J2710; J3010; J3370; J3490; J7030; J7120

== ENCOUNTER → 2023-01-10 10:13 | Outpatient (BNVA) | payer MEDICARE, MEDICAID, SELFPAY | PROVIDERS: PCP Family Medicine; Visit Provider Physician Assistant | DX: Z47.89 Encounter for other orthopedic aftercare (principal) | CPT/HCPCS: 99024 ==

== ENCOUNTER 2023-01-23 12:51 | Outpatient (RCR) | payer MEDICARE, MEDICAID, SELFPAY | END 2023-02-04 23:59 | disposition home or self-care (01) | LOC: SPT 12:51 | PROVIDERS: PCP Family Medicine; Visit Provider Orthopaedic Surgery | DX: Z98.890 Other specified postprocedural states (principal) | CPT/HCPCS: 97110; 97161 ==

== ENCOUNTER 2023-02-05 06:00 | Outpatient (RCR) | payer MEDICARE, MEDICAID, SELFPAY | END 2023-03-06 13:33 | disposition home or self-care (01) | LOC: SPT 06:00 | PROVIDERS: PCP Family Medicine; Visit Provider Orthopaedic Surgery | DX: Z98.890 Other specified postprocedural states (principal) | CPT/HCPCS: 97110 ==

== ENCOUNTER → 2023-02-07 08:57 | Outpatient (BNVA) | payer MEDICARE, MEDICAID, SELFPAY | PROVIDERS: PCP Family Medicine; Visit Provider Physician Assistant | DX: M54.10 Radiculopathy, site unspecified; Z47.89 Encounter for other orthopedic aftercare | CPT/HCPCS: 99024 ==

== ENCOUNTER → 2023-02-10 10:23 | Outpatient (BNVA) | payer MEDICARE, MEDICAID, SELFPAY | PROVIDERS: PCP Family Medicine; Visit Provider Family Medicine | DX: S93.401A Sprain of unspecified ligament of right ankle, initial encounter (principal); X58.XXXA Exposure to other specified factors, initial encounter | CPT/HCPCS: 73610 ==

== ENCOUNTER → 2023-02-16 13:41 | Outpatient (BNVA) | payer MEDICARE, MEDICAID, SELFPAY | PROVIDERS: PCP Family Medicine; Visit Provider Podiatrist Foot & Ankle Surgery | DX: M84.371A Stress fracture, right ankle, initial encounter for fracture; S93.401A Sprain of unspecified ligament of right ankle, initial encounter; W18.39XA Other fall on same level, initial encounter | CPT/HCPCS: 73610; 99203 ==

== ENCOUNTER 2023-02-24 09:41 | Outpatient (CLI) | payer MEDICARE, MEDICAID, SELFPAY ==
--- NOTE | 2023-02-24 11:00 | MR_ITS ---
WS: [id number] MRI RIGHT ANKLE WITHOUT CONTRAST. COMPARISON: Radiographs 02/16/2023 Multiplanar, multisequence imaging is performed without contrast. No fractures or marrow signal abnormalities. No osteochondral lesions involving the talar dome. No si gnificant joint effusion. The Achilles tendon is normal. There is a very small amount of increased fl uid in the flexor hallucis longus tendon sheath just posterior to the talus. There is also very small amount of increased signal in the adjacent tendon. The peroneal brevis and longus tendons are normal . Posterior tibial tendon and the flexor digitorum longus tendon are normal. Anterior and posterior talofibular ligaments normal signal and intact. The deltoid ligament is normal . There is a small calcaneal spur. IMPRESSION: 1. No marrow edema or fracture. 2. Very small amount of increased fluid in the flexor houses longus tendon sheath in the adjacent ten don. Consistent with very mild tenosynovitis. No full-thickness tear of the tendon. 3. No joint effusion. The remaining ligaments and tendons appear normal.
== END 2023-02-24 09:42 | disposition home or self-care (01) ==
PROVIDERS: PCP Family Medicine; Visit Provider Podiatrist Foot & Ankle Surgery
DX: S93.401A Sprain of unspecified ligament of right ankle, initial encounter (principal); X58.XXXA Exposure to other specified factors, initial encounter
CPT/HCPCS: 73721

== ENCOUNTER 2024-01-05 19:45 | Emergency (ER) | payer MEDICARE, MEDICAID, SELFPAY ==
[2024-01-05 20:06] VITALS: BP 165/101; PULSE 117; RESP 30; TEMP 37.2; O2SAT 96; BMI 32.1
--- NOTE | 2024-01-05 20:06 | XRR_ITS ---
PROCEDURE INFORMATION: Exam: XR Chest Exam date and time: 01/05/2024 8:40 PM Age: 43 years old Clinical indication: Patient HX: SOB; Ascites; Abdominal distention; Possible aspiration; Additional info: SOB; Ascites; Abdominal distention; Possible aspiration TECHNIQUE: Imaging protocol: Radiologic exam of the chest. Views: 1 view. COMPARISON: No relevant prior studies available. FINDINGS: Lungs: No focal consolidation. Pleural spaces: No sizable pleural effusion. No pneumothorax. Heart/Mediastinum: Unremarkable cardiomediastinal silhouette. Bones/joints: The osseous structures are unremarkable. Soft tissues: Soft tissues are unremarkable as visualized. XR/XR chest 1V portable [id number] IMPRESSION: No acute findings.
--- NOTE | 2024-01-05 20:09 | ED_ITS ---
HPI - Alcohol 2 General: Chief Complaint: Syncope Stated Complaint: syncope, Etoh Time Seen by Provider: 01/05/24 20:01 Source: EMS Mode of arrival: EMS Limitations: altered mental status History of Present Illness: Patient is a 43-year-old male brought to the emergency department by ambulance due to acute intoxication onset today. Family called due to patient appearing intoxicated on the front lawn of their house, he reportedly had 30 beers to drink in the last few hours. Patient is unable to provide any history, does not seem very affected by sternal rub. Per EMS they gave him Zofran as well as Ativan, and he has reportedly potentially aspirated. He is unable to state where he is, what his name is, or any other questions at this time. No reported drug use. Review of systems unobtainable at this time MD complaint: alcohol intoxication Last drink: Just [employer] Amount of alcohol consumed: 30 beers Treatments prior to arrival: anti-emetics and benzodiazepines Related Data Home Medications Medication Instructions Recorded Confirmed ibuprofen 800 mg tablet 800 mg PO Q8H 12/01/22 04/18/23 vitamin B complex 1 tab PO DAILY 12/03/22 04/18/23 acetaminophen 500 mg capsule 500 mg PO Q6H PRN 01/12/23 04/18/23 Previous Rx's Medication Instructions Recorded fluticasone propionate 50 2 spray intranasal DAILY #16 grams 02/21/23 mcg/actuation nasal spray,suspension (Flonase Allergy Relief) amlodipine 5 mg tablet (Norvasc) 5 mg PO .qpm #30 tabs 04/18/23 Allergies Allergy/AdvReac Type Severity Reaction Status Date / Time No Known Allergies Allergy Verified 04/18/23 09:00 Review of Systems 2 General: Reports: Other (Unobtainable due to acute intoxication) [facility] ED 2 PFSH: Medical History DDD (degenerative disc disease), lumbar Herniated nucleus pulposus, L5-S1 Herniated nucleus pulposus, L4-5 Lumbar pain with radiation down left leg Surgical History No pertinent past surgical history Family History Other Diabetes Hyperlipidemia Hypertension Denies family history of CAD (coronary artery disease) Clotting disorder Dementia Psychiatric illness Chronic kidney disease (CKD) Anesthesia complication Bleeding disorder Lung disease Cancer Stroke Social History Smoking and tobacco/nicotine status: current some day tobacco/nicotine user cigars Alcohol intake: current Alcohol intake frequency: few times a month Alcohol type: beer Substance/Drug Use: never Lives independently: Yes Marital status: Number of children: 3 Current occupational status: disabled Special bharathi needs: No Agree to transfusion: Yes Physical Exam 2 Const: EXAM LIMITATIONS: other limitations (Severely intoxicated) GENERAL APPEARANCE: odor of alcohol detected ORIENTATION/CONSCIOUSNESS: Yes awake OTHER: Does not respond to verbal stimuli or painful stimuli, repetitively moaning HENMT: COMMON NORMALS: normocephalic, atraumatic and Normal external nose present HEAD & SCALP: normocephalic and atraumatic FACE & SINUS: normal facial exam NOSE: Normal external nose present MOUTH: Normal oral and palatal mucosa present THROAT: posterior oropharynx normal OTHER: Drooling at time of examination Eye: COMMON NORMALS: Equal, round and reactive pupils present and conjunctivae normal CONJUNCTIVA: Yes conjunctivae normal PUPIL: Yes Equal, round and reactive pupils present Neck/C-Spine: COMMON NORMALS: full ROM, no lymphadenopathy and no meningeal signs GENERAL: Yes normal visual inspection Chest: COMMONS NORMALS: normal inspection of the chest and normal palpation of entire chest wall Resp: EFFORT & INSPECTION: Yes symmetric chest movement, Yes tachypneic and Yes Actively coughing AUSCULTATION: no crackles, rhonchi and no wheezes Cardio: COMMON NORMALS: regular rhythm, No gallops present (Cardio), No murmurs present (Cardio) and No rub (Cardio) RATE: tachycardic RHYTHM: r egular rhythm GI: COMMON NORMALS: Normal to inspection, nondistended, normoactive bowel sounds present, Soft to palpation and non-tender PALPATION: Yes Soft to palpation Extremity: COMMON NORMALS: normal to inspection, no joint enlargement and no clubbing, cyanosis or edema Neuro: COMMON NORMALS: moves all extremities SENSORIUM/ORIENTATION: Yes Orientation impaired MENINGEAL SIGNS: Yes no meningeal signs Skin: COMMON NORMALS: no rashes or lesions noted GENERAL SKIN EXAM: no rashes or lesions noted Course 2 Vital Signs: Vital signs: Vital Signs Temperature 99 F 01/05/24 20:06 Pulse Rate 94 01/05/24 21:30 Respiratory Rate 30 H 01/05/24 20:06 Blood Pressure 163/85 01/05/24 21:30 Pulse Oximetry 97 01/05/24 21:30 Oxygen Delivery Me thod Nasal Cannula 01/05/24 20:30 Oxygen Flow Rate 2 01/05/24 20:30 MDM - Alcohol Medical Decision Making Patient brought in by ambulance due to acute intoxication, ambulance, family. Initially on arrival patient did not provide any history, essentially disoriented. Started on fluids basic labs ordered, chest x-ray was 2 establish any aspiration pneumonia or other abnormal findings. Blood alcohol was 199, urinalysis and UDS negative. Chest x-ray normal. Blood work essentially unremarkable and was consistent with an acute alcohol intoxication. Another liter of fluids started. He was reexamined later and was found to be alert and oriented x 4, family in the room states that he has been much more anxious lately and was showing signs of a panic attack when she arrived home, just prior to calling ambulance. Patient has history of anxiety and some panic attacks, however does not take any medications for this as he does not like taking meds. CT head was obtained at patient's request, which was negative. Patient has been noted to be anxious as he has become more oriented, I do think today he had combination of intoxication with underlying panic disorder, as he was reported to be hyperventilating and was noting some distal paresthesias from this. He was rechecked again after another liter of fluids and states he is ready to go home and just feels tired. He will follow-up with his primary care provider and discuss any potential follow-ups for behavioral health, and strict return cautions are given. Family agrees with this and will take patient home. Lab Data 01/05/24 19:21 01/05/24 19:21 Radiology Impressions Chest X-Ray 01/05/24 20:06 IMPRESSION: No acute findings. Head CT 01/05/24 21:41 IMPRESSION: No acute intracranial findings. Laboratory Results WBC 10.00 10^3/uL (3.29-11.43) 01/05/24 19:21 RBC 5.79 10^6/uL (3.85-5.65) H 01/05/24 19:21 Hgb 18.50 g/dL (11.27-16.99) H 01/05/24 19:21 Hct 51.2 % (37-53) 01/05/24 19:21 MCV 88.4 fl (82-101) 01/05/24 19:21 MCH 32.0 pg (27-33) 01/05/24 19:21 MCHC 36.1 g/dL (30-55) 01/05/24 19:21 RDW 13.1 % (12.1-15.1) 01/05/24 19:21 Plt Count 140 10^3/cmm (157-399) L 01/05/24 19:21 MPV 12.7 fL (7.4-10.4) H 01/05/24 19:21 Neut % (Auto) 52.6 % 01/05/24 19:21 Lymph % (Auto) 35.2 % 01/05/24 19:21 [place] % (Auto) 6.7 % 01/05/24 19:21 Eos % (Auto) 4.5 % 01/05/24 19:21 Baso % (Auto) 0.7 % 01/05/24 19:21 Neut # (Auto) 5.26 10^3/uL (1.8-7.7) 01/05/24 19:21 Lymph # (Auto) 3.5 10^3/uL (0.8-4.8) 01/05/24 19:21 [place] # (Auto) 0.7 10^3/uL (0.2-0.9) 01/05/24 19:21 Eos # (Auto) 0.5 10^3/uL (0.0-0.8) 01/05/24 19:21 Baso # (Auto) 0.1 10^3/uL (0.0-0.1) 01/05/24 19:21 Nucleated RBC % (auto) 0 % 01/05/24 19:21 Nucleated RBCs # 0.0 /100WBC 01/05/24 19:21 Sodium 130 mmol/L (136-145) L 01/05/24 19:21 Potassium 3.7 mmol/L (3.5-5.1) 01/05/24 19:21 Chloride 92 mmol/L (98-107) L 01/05/24 19:21 Carbon Dioxide 17 mmol/L (22-29) L 01/05/24 19:21 Anion Gap 24.7 (5-19) H 01/05/24 19:21 BUN 7 mg/dL (6-20) 01/05/24 19:21 Creatinine 0.7 mg/dL (0.7-1.2) 01/05/24 19:21 GFR Calculation 122.5 mL/min (90-130) 01/05/24 19:21 Glucose 82 mg/dL (65-115) 01/05/24 19:21 Calculated Osmolality 267 mOsm/kg (285-295) L 01/05/24 19:21 Calcium 9.0 mg/dL (8.5-10.5) 01/05/24 19:21 Total Bilirubin 0.4 mg/dL (0.15-1.2) 01/05/24 19:21 AST 24 U/L (0-40) 01/05/24 19:21 ALT 25 U/L (0-41) 01/05/24 19:21 Alkaline Phosphatase 54 U/L (40-130) 01/05/24 19:21 Total Protein 7.3 g/dL (6.6-8.7) 01/05/24 19:21 Albumin 4.5 g/dL (3.5-5.2) 01/05/24 19:21 Globulin 2.8 g/dL (1.3-4.6) 01/05/24 19:21 Urine Color Yellow (Yellow) 01/05/24 21:30 Urine Appearance Clear (CLEAR) 01/05/24 21:30 Urine pH 6.0 (5-7) 01/05/24 21:30 Ur Specific [place] 1.004 (1.005-1.030) L 01/05/24 21:30 Urine Protein Negative (Negative) 01/05/24 21:30 Urine Glucose (UA) Negative (Normal) 01/05/24 21:30 Urine Ketones Negative (Negative) 01/05/24 21:30 Urine Blood Trace (Negative) A 01/05/24 21:30 Urine Nitrate Negative (Negative) 01/05/24 21:30 Urine Bilirubin Negative (Negative) 01/05/24 21:30 Urine Urobilinogen 0.2 mg/dL (Negative) 01/05/24 21:30 Ur Leukocyte Esterase Negative (Negative) 01/05/24 21:30 Urine RBC 0-2 /hpf (0-2) 01/05/24 21:30 Urine WBC 0-5 /hpf (0-5) 01/05/24 21:30 Ur Squamous Epith Cells 0-5 /hpf (0-5) 01/05/24 21:30 Amorphous Sediment Not Reportable 01/05/24 21:30 Urine Bacteria None seen /hpf (NONE) 01/05/24 21:30 Hyaline Casts 0-4 /lpf H 01/05/24 21:30 Urine Opiates Screen Negative ng/mL (Negative) 01/05/24 21:30 Ur Barbiturates Screen Negative ng/mL (Negative) 01/05/24 21:30 Ur Phencyclidine Scrn Negative ng/mL (Negative) 01/05/24 21:30 Ur Amphetamines Screen Negative ng/mL (Negative) 01/05/24 21:30 U Benzodiazepines Scrn Negative ng/mL (Negative) 01/05/24 21:30 Urine Cocaine Screen Negative ng/mL (Negative) 01/05/24 21:30 U Marijuana (THC) Screen Negative ng/mL (Negative) 01/05/24 21:30 Ethyl Alcohol 199 mg/dL (0-10) H 01/05/24 19:21 All radiology interpretation(s) finalized by discharge Discharge Plan Discharge Patient Disposition: Home Clinical Impression: Panic attack Acute alcohol intoxication Qualifiers: Complication of substance-induced condition: uncomplicated Qualified Code(s): F 10.920 - Alcohol use, unspecified with intoxication, uncomplicated Condition: Stable Prescriptions: No Action acetaminophen 500 mg capsule 500 mg PO Q6H PRN ibuprofen 800 mg tablet 800 mg PO Q8H fluticasone propionate [Flonase Allergy Relief] 50 mcg/actuation spray,suspension 2 spray intranasal DAILY Qty: 16 0RF Rx Instructions: administer into each nostril amlodipine [Norvasc] 5 mg tablet 5 mg PO .qpm Qty: 30 0RF vitamin B complex Tablet 1 tab PO DAILY Discharge Orders: Discharge ED (Routine); Ordered 01/05/24 Ordered By: Hakan Helton Referrals: Jairon Adrian MD [Primary Care Provider] - Discharge Diet: As Directed Discharge Activity: Increase activity as tolerated Patient Instructions: Alcohol Intoxication (ED), Anxiety (ED), Panic Attack (ED) Activity Restrictions/Additional Instructions: Plenty of fluids at home. Please follow-up with your primary care provider to discuss ED visit. Return with any new or concerning symptoms you may have. Coding Level of Care Code ED [employer] Operator for Clare Tobias
[2024-01-05 20:18] LABS: Basophils # 0.1 10^3/uL (0.0-0.1); Basophils % 0.7 %; Eosinophils # 0.5 10^3/uL (0.0-0.8); Eosinophils % 4.5 %; Hematocrit 51.2 % (37-53); Lymphocytes # 3.5 10^3/uL (0.8-4.8); Lymphocytes % 35.2 %; Mean Corpuscular HGB Conc 36.1 g/dL (30-55); Mean Corpuscular Volume 88.4 fl (82-101); Mean Platelet Volume 12.7 fL (7.4-10.4); Monocytes # 0.7 10^3/uL (0.2-0.9); Monocytes % 6.7 %; Neutrophils # 5.26 10^3/uL (1.8-7.7); Neutrophils % 52.6 %; Nucleated Red Blood Cells % 0 %; Platelet Count 140 10^3/cmm (157-399); Red Blood Count 5.79 10^6/uL (3.85-5.65); Red Cell Distribution Width 13.1 % (12.1-15.1)
[2024-01-05 20:30] VITALS: BP 163/87; PULSE 93; O2SAT 97
[2024-01-05] MEDS: sodium chloride 0.9% 1,000 ML 999 ML IV ×2 (20:33→21:44)
[2024-01-05 20:35] LABS: Alanine Aminotransferase 25 U/L (0-41); Albumin Level 4.5 g/dL (3.5-5.2); Alcohol Level 199 mg/dL (0-10); Alkaline Phosphatase 54 U/L (40-130); Anion Gap 24.7 (5-19); Aspartate Amino Transferase 24 U/L (0-40); Blood Urea Nitrogen 7 mg/dL (6-20); Carbon Dioxide 17 mmol/L (22-29); Chloride 92 mmol/L (98-107); Creatinine Clr Calc Pharmacy 180.3413; Globulin 2.8 g/dL (1.3-4.6); Glomerular Filtration Rate 122.5 mL/min (90-130); Glucose 82 mg/dL (65-115); Osmolality Calculated 267 mOsm/kg (285-295); Potassium 3.7 mmol/L (3.5-5.1); Sodium 130 mmol/L (136-145); Total Bilirubin 0.4 mg/dL (0.15-1.2); Total Protein 7.3 g/dL (6.6-8.7)
[2024-01-05 21:00] VITALS: BP 144/82; PULSE 93; O2SAT 97
[2024-01-05 21:30] VITALS: BP 163/85; PULSE 94; O2SAT 97
--- NOTE | 2024-01-05 21:41 | CTR_ITS ---
PROCEDURE INFORMATION: Exam: CT Head Without Contrast Exam date and time: 01/05/2024 9:59 PM Age: 43 years old Clinical indication: Patient HX: EMS arrival for seizure activity; Additional info: Seizure-like activity TECHNIQUE: Imaging protocol: Computed tomography of the head without contrast. Radiation optimization: All CT scans at this facility use at least one of these dose optimization techniques: automated exposure control; mA and/or kV adjustment per patient size (includes targeted exams where dose is matched to clinical indication); or iterative reconstruction. COMPARISON: No relevant prior studies available. RADIATION DOSE METRICS: Total DLP (mGy-cm): 1103.05 FINDINGS: Brain: No intracranial hemorrhage. No evidence of acute territorial infarct or cerebral edema. No mass effect or midline shift. Cerebral ventricles: No hydrocephalus. Paranasal sinuses: Moderate mucosal thickening of the paranasal sinuses. No air-fluid levels. Mastoid air cells: The mastoid air cells are clear. Bones: The calvarium is intact. Soft tissues: Soft tissues are unremarkable as visualized. CT/CT head wo con* [id number] IMPRESSION: No acute intracranial findings.
[2024-01-05 21:48] LABS: Charge for UA Resulting for Rev
[2024-01-05 21:52] LABS: Bilirubin Urine Negative (Negative); Blood Urine Trace (Negative); Glucose Urine UA Negative (Normal); Ketones Urine Negative (Negative); Leukocyte Esterase Urine Negative (Negative); Nitrate Urine Negative (Negative); Protein Urine Negative (Negative); Specific Gravity, Urine 1.004 (1.005-1.030); Urine Appearance Clear (CLEAR); Urine Color Yellow (Yellow); Urobilinogen Urine 0.2 mg/dL (Negative)
[2024-01-05 21:57] LABS: Bacteria Urine None Seen /hpf; Hyaline Casts Urine 0-4 /lpf; RBC Urine 0-2 /hpf (0-2); Squamous Epithelial Cell Urine 0-5 /hpf (0-5); WBC Urine 0-5 /hpf (0-5)
[2024-01-05 21:59] LABS: Amphetamines Screen Urine Negative (Negative); Barbiturates Screen Urine Negative (Negative); Benzodiazepines Screen Urine Negative (Negative); Cocaine Screen Urine Negative (Negative); Opiate Screen Urine Negative (Negative); PCP Screen Urine Negative (Negative); THC Screen Urine Negative (Negative)
[2024-01-05 23:22] VITALS: BP 163/120; PULSE 80; O2SAT 93
== END 2024-01-05 23:24 | disposition home or self-care (01) ==
PROVIDERS: Emergency Provider Physician Assistant; PCP Family Medicine
DX: F41.0 Panic disorder [episodic paroxysmal anxiety] (principal); F10.920 Alcohol use, unspecified with intoxication, uncomplicated; Y90.6 Blood alcohol level of 120-199 mg/100 ml; F17.290 Nicotine dependence, other tobacco product, uncomplicated
CPT/HCPCS: 70450; 71045; 80053; 80306; 80307; 81003; 81015; 85025; 96360; 96361; 99285; J7030

== ENCOUNTER 2024-04-12 21:37 | Emergency (ER) | payer MEDICARE, SELFPAY ==
[2024-04-12 21:46] VITALS: BP 170/130; PULSE 117; RESP 28; O2SAT 97; BMI 25.4
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
[2024-04-12] MEDS: sodium chloride 0.9% 1,000 ML 999 ML IV (22:23)
[2024-04-12 22:25] LABS: Basophils # 0.1 10^3/uL (0.0-0.1); Basophils % 0.6 %; Eosinophils # 0.2 10^3/uL (0.0-0.8); Eosinophils % 1.6 %; Hematocrit 48.4 % (37-53); Mean Corpuscular HGB Conc 35.5 g/dL (30-55); Mean Corpuscular Hemoglobin 32.3 pg (27-33); Mean Platelet Volume 12.6 fL (7.4-10.4); Monocytes # 0.6 10^3/uL (0.2-0.9); Monocytes % 5.7 %; Neutrophils # 7.11 10^3/uL (1.8-7.7); Neutrophils % 71.8 %; Nucleated Red Blood Cells % 0 %; Platelet Count 127 10^3/cmm (157-399); Red Blood Count 5.32 10^6/uL (3.85-5.65); Red Cell Distribution Width 12.9 % (12.1-15.1)
--- NOTE | 2024-04-12 22:25 | XRR_ITS ---
PROCEDURE INFORMATION: Exam: XR Chest Exam date and time: 04/12/2024 10:30 PM Age: 43 years old Clinical indication: Shortness of breath; Patient HX: C/O SOB TECHNIQUE: Imaging protocol: Radiologic exam of the chest. Views: 1 view. COMPARISON: CR XR chest 1V portable [id number] 01/05/2024 8:40 PM FINDINGS: Lungs: Unremarkable. No consolidation. Incidental azygos lobe/fissure. Pleural spaces: Unremarkable. No pleural effusion. No pneumothorax. Heart/Mediastinum: Unremarkable. No cardiomegaly. Bones/joints: Unremarkable. XR/XR chest 1V portable [id number] IMPRESSION: No acute findings.
[2024-04-12 22:38] LABS: Alanine Aminotransferase 22 U/L (0-41); Albumin Level 4.3 g/dL (3.5-5.2); Alcohol Level 134 mg/dL (0-10); Alkaline Phosphatase 51 U/L (40-130); Anion Gap 20.5 (5-19); Aspartate Amino Transferase 21 U/L (0-40); Blood Urea Nitrogen 8 mg/dL (6-20); Carbon Dioxide 18 mmol/L (22-29); Chloride 100 mmol/L (98-107); Creatinine Clr Calc Pharmacy 162.3703; Glomerular Filtration Rate 122.5 mL/min (90-130); Glucose 85 mg/dL (65-115); Osmolality Calculated 278 mOsm/kg (285-295); Potassium 3.5 mmol/L (3.5-5.1); Sodium 135 mmol/L (136-145); Total Bilirubin 0.3 mg/dL (0.15-1.2); Total Protein 7.3 g/dL (6.6-8.7)
[2024-04-12 23:05] VITALS: BP 172/134; PULSE 93; RESP 16; O2SAT 92
[2024-04-13 00:03] VITALS: BP 165/107; PULSE 86; RESP 16; O2SAT 96
[2024-04-13 00:40] LABS: Amphetamines Screen Urine Negative (Negative); Barbiturates Screen Urine Negative (Negative); Benzodiazepines Screen Urine Negative (Negative); Cocaine Screen Urine Negative (Negative); Opiate Screen Urine Negative (Negative); PCP Screen Urine Negative (Negative); THC Screen Urine Negative (Negative)
[2024-04-13 00:57] VITALS: BP 150/94; PULSE 82; RESP 14; O2SAT 97
[2024-04-13 07:14] LABS: Glucose Point of Care 92 mg/dL (70-110)
== END 2024-04-13 00:58 | disposition home or self-care (01) ==
PROVIDERS: Emergency Provider Nurse Practitioner; PCP Family Medicine
DX: F10.920 Alcohol use, unspecified with intoxication, uncomplicated (principal); Y90.6 Blood alcohol level of 120-199 mg/100 ml; Z72.0 Tobacco use
CPT/HCPCS: 36415; 36416; 71045; 80053; 80306; 80307; 82962; 85025; 99284; J7030

== ENCOUNTER 2024-05-29 20:16 | Emergency (ER) | payer MEDICARE, SELFPAY ==
[2024-05-29] VITALS (7 sets, daily range): BP systolic 154–213; BP diastolic 96–150; PULSE 76–95; RESP 14–23; TEMP 36.6; O2SAT 96–99; BMI 26.9
--- NOTE | 2024-05-29 20:35 | CTR_ITS ---
PROCEDURE INFORMATION: Exam: CT Head Without Contrast Exam date and time: 05/29/2024 8:35 PM Age: 43 years old Clinical indication: Stroke-like symptoms; Left facial droop; Additional info: Left facial drooping TECHNIQUE: Imaging protocol: Computed tomography of the head without contrast. Radiation optimization: All CT scans at this facility use at least one of these dose optimization techniques: automated exposure control; mA and/or kV adjustment per patient size (includes targeted exams where dose is matched to clinical indication); or iterative reconstruction. Other technique: STROKE PROTOCOL was implemented. COMPARISON: CT head wo con* [id number] 01/05/2024 9:59 PM RADIATION DOSE METRICS: Total DLP (mGy-cm): 1172.18 FINDINGS: Brain: Normal. No hemorrhage. Unremarkable white matter. No mass effect. Cerebral ventricles: No ventriculomegaly. Paranasal sinuses: Air-fluid level left maxillary sinus. Mastoid air cells: Visualized mastoid air cells are well aerated. Bones: Unremarkable. No acute fracture. Soft tissues: Unremarkable. CT/CT head thrombolytic [id number] IMPRESSION: No acute hemorrhage or infarction demonstrated. Left maxillary sinus inflammation. ASSESSMENT: ASPECTS ([place] Stroke Program Early CT Score) is 10. Findings called to 750 PM [facility].
[2024-05-29 20:46] LABS: Glucose Point of Care 125 mg/dL (70-110)
--- NOTE | 2024-05-29 20:46 | CTR_ITS ---
PROCEDURE INFORMATION: Exam: CTA Head With Contrast, Arteriography Exam date and time: 05/29/2024 8:56 PM Age: 43 years old Clinical indication: Other: Facial numbness; Additional info: Possible stroke TECHNIQUE: Imaging protocol: Computed tomographic angiography of the head with contrast. Exam focused on the arteries. 3D rendering (Not supervised by radiologist): MIP and/or 3D reconstructed images were created by the technologist. Radiation optimization: All CT scans at this facility use at least one of these dose optimization techniques: automated exposure control; mA and/or kV adjustment per patient size (includes targeted exams where dose is matched to clinical indication); or iterative reconstruction. Contrast material: OMNIPAQUE 350; Contrast volume: 100 ml; Contrast route: INTRAVENOUS (IV); COMPARISON: CT head thrombolytic [id number] 05/29/2024 8:35 PM RADIATION DOSE METRICS: Total DLP (mGy-cm): 708.13 FINDINGS: ANTERIOR CIRCULATION: Right internal carotid artery: Intracranial segment is patent with no significant stenosis. No aneurysm. Right middle cerebral artery: No occlusion or significant stenosis. No aneurysm. Right anterior cerebral artery: No occlusion or significant stenosis. No aneurysm. Left internal carotid artery: Intracranial segment is patent with no significant stenosis. No aneurysm. Left middle cerebral artery: No occlusion or significant stenosis. No aneurysm. Left anterior cerebral artery: No occlusion or significant stenosis. No aneurysm. POSTERIOR CIRCULATION: Right vertebral artery: No occlusion or significant stenosis. No aneurysm. Left vertebral artery: No occlusion or significant stenosis. No aneurysm. Basilar artery: No occlusion or significant stenosis. No aneurysm. Right posterior cerebral artery: No occlusion or significant stenosis. No aneurysm. Left posterior cerebral artery: No occlusion or significant stenosis. No aneurysm. Brain: No definite mass, mass effect, or midline shift. Cerebral ventricles: No ventriculomegaly. Bones/joints: Unremarkable. No acute fracture. Soft tissues: Unremarkable. PROCEDURE INFORMATION: Exam: CTA Neck With Contrast Exam date and time: 05/29/2024 8:56 PM Age: 43 years old Clinical indication: Other: Facial numbness; Additional info: Possible stroke TECHNIQUE: Imaging protocol: Computed tomographic angiography of the neck with contrast. Exam focused on the cervical segments of the vasculature. 3D rendering (Not supervised by radiologist): MIP and/or 3D reconstructed images were created by the technologist. Radiation optimization: All CT scans at this facility use at least one of these dose optimization techniques: automated exposure control; mA and/or kV adjustment per patient size (includes targeted exams where dose is matched to clinical indication); or iterative reconstruction. Contrast material: OMNIPAQUE 350; Contrast volume: 100 ml; Contrast route: INTRAVENOUS (IV); COMPARISON: CT head thrombolytic [id number] 05/29/2024 8:35 PM RADIATION DOSE METRICS: Total DLP (mGy-cm): 708.13 FINDINGS: Right common carotid artery: No stenosis. No dissection or occlusion. Right internal carotid artery: No stenosis of the extracranial segment. No dissection or occlusion. Right external carotid artery: No occlusion or stenosis of the origin. Left common carotid artery: No stenosis. No dissection or occlusion. Left internal carotid artery: No stenosis of the extracranial segment. No dissection or occlusion. Left external carotid artery: No occlusion or stenosis of the origin. Right vertebral artery: No stenosis. No dissection or occlusion. Left vertebral artery: No stenosis. No dissection or occlusion. Soft tissues: Normal. No significant soft tissue swelling. Bones/joints: No acute fracture. CT/CT angio headneck* [id number] IMPRESSION: No large vessel stenosis or occlusion. IMPRESSION: No stenosis or occlusion. REFERENCES: NASCET CRITERIA. The degree of stenosis in the cervical segment of the internal carotid artery is based on NASCET criteria. Normal is no stenosis. Mild is less than 50% stenosis. Moderate is 50-69% stenosis. Severe is 70% to 99% stenosis. Total occlusion is no detectable patent lumen.
--- NOTE | 2024-05-29 20:46 | ECG_ITS ---
[facility]: 2024[facility]29 Pat Name: Sidney Bustillo Jr Department: Room: Gender: Male Scientific Associate: : 1980 Requested By: Roseann Velásquez Order Number: [id number] Damon MD: Dom Ford M.D. Measurements Intervals [place] Rate: 87 P: 56 FL: 124 QRS: 59 QRSD: 96 T: 68 QT: 373 QTc: 451 Interpretive Statements SINUS RHYTHM No previous ECG available for comparison Electronically Signed On 05-31-2024 09:04:21 WASH BOX OPERATOR by Dom Ford M.D. [email or web address]
--- NOTE | 2024-05-29 20:57 | ED_ITS ---
HPI - Neuro Symptoms/Deficit 2 General: Chief Complaint: Neuro Symptoms/Deficit Stated Complaint: left face drooping left side weask Time Seen by Provider: 05/29/24 20:35 History of Present Illness: 43-year-old man who presents emergency r oom with left facial weakness and swelling. He also is having some weakness in his left arm. He says the swelling in his face started a couple of days ago. He now has trouble lifting his eyebrow and some weakness of his facial muscles on the left side. He says on the way here he developed an ache in his left arm and some weakness. Has mild weakness in the left arm. Mild Related Data Home Medications Medication Instructions Recorded Confirmed ibuprofen 800 mg tablet 800 mg PO Q8H 12/01/22 04/18/23 vitamin B complex 1 tab PO DAILY 12/03/22 04/18/23 acetaminophen 500 mg capsule 500 mg PO Q6H PRN 01/12/23 04/18/23 Previous Rx's Medication Instructions Recorded fluticasone propionate 50 2 spray intranasal DAILY #16 grams 02/21/23 mcg/actuation nasal spray,suspension (Flonase Allergy Relief) amlodipine 5 mg tablet (Norvasc) 5 mg PO .qpm #30 tabs 04/18/23 cephalexin 500 mg tablet 500 mg PO TID 7 days #21 tabs 05/29/24 diclofenac sodium 50 mg 50 mg PO BID PRN pain #14 tabs 05/29/24 tablet,delayed release prednisone 20 mg tablet 60 mg (3 x 20 mg) PO DAILY #20 tabs 05/29/24 valacyclovir 1 gram tablet 1,000 mg PO BID 10 days #20 tabs 05/29/24 (Valtrex) Allergies Allergy/AdvReac Type Severity Reaction Status Date / Time No Known Allergies Allergy Verified 04/18/23 09:00 Review of Systems 2 Narrative: Constitutional symptoms: Negative except as documented in HPI. Skin symptoms: Negative except as documented in HPI. Eye symptoms: Negative except as documented in HPI. ENMT symptoms: Negative except as documented in HPI. Respiratory symptoms: Negative except as documented in HPI. Cardiovascular symptoms: Negative except as documented in HPI. Gastrointestinal symptoms: Negative except as documented in HPI. Genitourinary symptoms: Negative except as documented in HPI. Musculoskeletal symptoms: Negative except as documented in HPI. Neurologic symptoms: Negative except as documented in HPI. Psychiatric symptoms: Negative except as documented in HPI. Endocrine symptoms: Negative except as documented in HPI. PFSH ED 2 PFSH: Medical History DDD (degenerative disc disease), lumbar Herniated nucleus pulposus, L5-S1 Herniated nucleus pulposus, L4-5 Lumbar pain with radiation down left leg Surgical History No pertinent past surgical history Family History Other Diabetes Hyperlipidemia Hypertension Denies family history of CAD (coronary artery disease) Clotting disorder Dementia Psychiatric illness Chronic kidney disease (CKD) Anesthesia complication Bleeding disorder Lung disease Cancer Stroke Social History Smoking and tobacco/nicotine status: current some day tobacco/nicotine user cigars Alcohol intake: current Alcohol intake frequency: few times a month Alcohol type: beer Substance/Drug Use: never Lives independently: Yes Marital status: Number of children: 3 Current occupational status: disabled Special bharathi needs: No Agree to transfusion: Yes Physical Exam 2 Narrative: EXAM NARRATIVE: General: Alert, no acute distress. Skin: Warm, dry. Head: Normocephalic, atraumatic. Neck: Supple, trachea midline. Eye: Extraocular movements are intact. Ears, nose, mouth and throat: mucosa moist. Cardiovascular: Regular, Normal peripheral perfusion. Respiratory: Lungs are clear to auscultation, respirations are non-labored, breath sounds are equal, Symmetrical chest wall expansion. Gastrointestinal: Soft, Nontender, Non distended Musculoskeletal: Normal ROM, no deformity. Neurological: Alert and oriented, has some swelling around his left eye. Left eyebrow paralysis. Some weakness of the left facial muscles. This has been present for 2 days. Has some mild weakness and mild drift of his left arm on exam. This started an hour ago. Psychiatric: Cooperative, appropriate mood & affect. Course 2 Vital Signs: Vital signs: Vital Signs Temperature 97.9 F 05/29/24 20:21 Pulse Rate 76 05/29/24 22:38 Respiratory Rate 20 H 05/29/24 22:38 Blood Pressure 158/96 05/29/24 22:38 Pulse Oximetry 96 05/29/24 22:38 Oxygen Delivery Me thod Room Air 05/29/24 20:21 MDM - Neuro Symptoms/Deficit Medical Decision Making Medical decision making: Differential diagnosis for patient with focal neurologic deficit(s) includes but not limited to and based on the above HPI, review of systems and physical exam: ischemic stroke, hemorrhagic stroke and embolic stroke secondary to atrial fibrillation), TIA, Rodriguez's palsey, metabolic encephalopathy with previous stroke. Orders placed to evaluate differential diagnosis based on the above differential, HPI and physical exam Consultation: I spoke with Dr. Grossman with neurology. 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 He has a new left arm weakness that is not really consistent with stroke either but would give him an NIH of 1. NIH Stroke Scale/Score (NIHSS) from [email or web address] on 05/29/2024 All calculations should be rechecked by clinician prior to use RESULT SUMMARY: 1 points NIH Stroke Scale INPUTS: 1A: Level of consciousness ?> 0 = Alert; keenly responsive 1B: Ask month and age ?> 0 = Both questions right 1C: 'Blink eyes' & 'squeeze hands' ?> 0 = Performs both tasks 2: Horizontal extraocular movements ?> 0 = Normal 3: Visual wu ?> 0 = No visual loss 4: Facial palsy ?> 0 = Normal symmetry 5A: Left arm motor drift ?> 1 = Drift, but doesn't hit bed 5B: Right arm motor drift ?> 0 = No drift for 10 seconds 6A: Left leg motor drift ?> 0 = No drift for 5 seconds 6B: Right leg motor drift ?> 0 = No drift for 5 seconds 7: Limb Ataxia ?> 0 = No ataxia 8: Sensation ?> 0 = Normal; no sensory loss 9: Language/aphasia ?> 0 = Normal; no aphasia 10: Dysarthria ?> 0 = Normal 11: Extinction/inattention ?> 0 = No abnormality CT head: No acute intracranial process. no intracranial hemorrhage, no evidence of infarct. no evidence of acute fracture.This was reviewed and interpreted by myself the ER physician. CTA of the head and neck: No obvious stenosis or occlusions are identified. No mass. This was reviewed and interpreted by myself the emergency room physician. I also reviewed the radiology report. Lab Review: Laboratory results were reviewed and interpreted by myself the emergency room physician. Lab work is fairly unremarkable. Stable polycythemia. No leukocytosis. No renal failure. Blood alcohol level is 33. I reviewed the patient's medical record. Reexamination: Patient remained stable. Swelling in the left face with Rodriguez's palsy. He has history of peripheral neurologic issues and this issue with his left arm is not something new. He has issues with his leg. He has pain and some weakness. This is not seem to be a strokelike symptom. Assessment and plan: Rodriguez's palsy Headache Ear infection Left arm radiculopathy ?IV valacyclovir, IV Solu-Medrol, IV Toradol, Norflex, Reglan and Benadryl for his headache. IV Rocephin for possible ear infection. - Discharged home - Discussed findings and plan with patient. Answered any questions. - All laboratory values were reviewed and interpreted personally by myself, the ER physician - All imaging was reviewed and interpreted personally by myself, the ER physician. - Evaluation and treatment of this problem were appropriate in the emergency setting Lab Data 05/29/24 20:58 05/29/24 20:[address] 05/29/24 20:35 IMPRESSION: No acute hemorrhage or infarction demonstrated. Left maxillary sinus inflammation. ASSESSMENT: ASPECTS ([place] Stroke Program Early CT Score) is 10. Findings called to [address] [facility]. ADDENDUM: 05/29/242052 Dr. Bonilla, jaxson Bustillo. Head/Neck CTA 05/29/24 20:46 IMPRESSION: No large vessel stenosis or occlusion. IMPRESSION: No stenosis or occlusion. REFERENCES: NASCET CRITERIA. The degree of stenosis in the cervical segment of the internal carotid artery is based on NASCET criteria. Normal is no stenosis. Mild is less than 50% stenosis. Moderate is 50-69% stenosis. Severe is 70% to 99% stenosis. Total occlusion is no detectable patent lumen. Laboratory Results WBC 8.61 10^3/uL (3.29-11.43) 05/29/24 20:58 RBC 5.61 10^6/uL (3.85-5.65) 05/29/24 20:58 Hgb 17.60 g/dL (11.27-16.99) H 05/29/24 20:58 Hct 49.9 % (37-53) 05/29/24 20:58 MCV 88.9 fl (82-101) 05/29/24 20:58 MCH 31.4 pg (27-33) 05/29/24 20:58 MCHC 35.3 g/dL (30-55) 05/29/24 20:58 RDW 12.3 % (12.1-15.1) 05/29/24 20:58 Plt Count 130 10^3/cmm (157-399) L 05/29/24 20:58 MPV 12.5 fL (7.4-10.4) H 05/29/24 20:58 Neut % (Auto) 66.5 % 05/29/24 20:58 Lymph % (Auto) 24.0 % 05/29/24 20:58 [place] % (Auto) 5.6 % 05/29/24 20:58 Eos % (Auto) 3.0 % 05/29/24 20:58 Baso % (Auto) 0.7 % 05/29/24 20:58 Neut # (Auto) 5.72 10^3/uL (1.8-7.7) 05/29/24 20:58 Lymph # (Auto) 2.1 10^3/uL (0.8-4.8) 05/29/24 20:58 [place] # (Auto) 0.5 10^3/uL (0.2-0.9) 05/29/24 20:58 Eos # (Auto) 0.3 10^3/uL (0.0-0.8) 05/29/24 20:58 Baso # (Auto) 0.1 10^3/uL (0.0-0.1) 05/29/24 20:58 Nucleated RBC % (auto) 0 % 05/29/24: Nucleated RBCs # 0.0 /100WBC 05/29/24 20:58 PT 12.30 SECONDS (12.1-14.9) 05/29/24 20:58 INR 0.86 (0.8-1.2) 05/29/24 20:58 APTT 25.8 SECONDS (23.9-36.7) 05/29/24 20:58 Sodium 133 mmol/L (136-145) L 05/29/24 20:58 Potassium 3.4 mmol/L (3.5-5.1) L 05/29/24 20:58 Chloride 96 mmol/L (98-107) L 05/29/24 20:58 Carbon Dioxide 23 mmol/L (22-29) 05/29/24 20:58 Anion Gap 17.4 (5-19) 05/29/24 20:58 BUN 7 mg/dL (6-20) 05/29/24 20:58 Creatinine 0.8 mg/dL (0.7-1.2) 05/29/24 20:58 GFR Calculation 105.0 mL/min (90-130) 05/29/24 20:58 Glucose 112 mg/dL (65-115) 05/29/24 20:58 POC Glucose 125 mg/dL (70-110) H 05/29/24 20:42 Calculated Osmolality 275 mOsm/kg (285-295) L 05/29/24 20:58 Calcium 9.0 mg/dL (8.5-10.5) 05/29/24 20:58 Total Bilirubin 0.4 mg/dL (0.15-1.2) 05/29/24 20:58 AST 18 U/L (0-40) 05/29/24 20:58 ALT 20 U/L (0-41) 05/29/24 20:58 Alkaline Phosphatase 65 U/L (40-130) 05/29/24 20:58 C-Reactive Protein 3.0 mg/L (0.0-4.9) 05/29/24 20:58 Total Protein 7.1 g/dL (6.6-8.7) 05/29/24 20:58 Albumin 4.2 g/dL (3.5-5.2) 05/29/24 20:58 Globulin 2.9 g/dL (1.3-4.6) 05/29/24 20:58 Ethyl Alcohol 33 mg/dL (0-10) H 05/29/24 20:58 All radiology interpretation(s) finalized by discharge Discharge Plan Discharge Patient Disposition: Home Clinical Impression: Rodriguez's palsy Condition: Stable Prescriptions: New valacyclovir [Valtrex] 1 gram tablet 1,000 mg PO BID 10 Days Qty: 20 0RF prednisone 20 mg tablet 60 mg PO DAILY Qty: 20 0RF Rx Instructions: 3 tabs (60 mg) x 3 days. 2 tabs (40 mg) x 3 days. 1 tab (20 mg) x 3 days. 1/2 tab (10 mg) x 4 days cephalexin 500 mg tablet 500 mg PO TID 7 Days Qty: 21 0RF diclofenac sodium 50 mg tablet,delayed release (DR/EC) 50 mg PO BID PRN (Reason: pain) Qty: 14 0RF No Action acetaminophen 500 mg capsule 500 mg PO Q6H PRN ibuprofen 800 mg tablet 800 mg PO Q8H fluticasone propionate [Flonase Allergy Relief] 50 mcg/actuation spray,suspension 2 spray intranasal DAILY Qty: 16 0RF Rx Instructions: administer into each nostril amlodipine [Norvasc] 5 mg tablet 5 mg PO .qpm Qty: 30 0RF vitamin B complex Tablet 1 tab PO DAILY Discharge Orders: Discharge ED (Routine); Ordered 05/29/24 Ordered By: Roseann Hill Referrals: Jairon Adrian MD [Primary Care Provider] - 4-7 days Discharge Diet: Usual diet Discharge Activity: Increase activity as tolerated Patient Instructions: Rodriguez Palsy (ED), Opioid Safety, Pain Management Activity Restrictions/Additional Instructions: Thank you for choosing [facility] for your healthcare needs today. Please realize this is an emergency room and that we are providing you with a medical screening exam and this may not be complete and all inclusive of all the testing and or work up that you may need to determine your ailment or severity of your illness. You have been screened and evaluated and felt safe for discharge. Health conditions do change or evolve sometimes and as such it is important that you follow up with your Primary Doctor to be re checked, 3-5 days is a general good time frame for follow up. You are always welcome to return to the ED for re assessment if your symptoms are worsening or you have new concerns Coding Level of Care Code ED Stepdown Nurse for Clare Tobias
[2024-05-29] MEDS: iohexol 350 mg/mL 500 mL Btl (per mL) IV (20:58)
[2024-05-29 21:24] LABS: INR 0.86 (0.8-1.2)
[2024-05-29 21:25] LABS: Partial Thromboplastin Time 25.8 SECONDS (23.9-36.7)
[2024-05-29] MEDS: ondansetron 2 mg/ML SDV 2 mL 8 MG IVP (21:41)
[2024-05-29] MEDS: ketorolac 30 mg/mL INJ IVP (21:43)
[2024-05-29] MEDS: methylPREDNISolone sod succ 125 mg/2 mL INJ IVP (21:44)
[2024-05-29 21:45] LABS: Basophils # 0.1 10^3/uL (0.0-0.1); Basophils % 0.7 %; Eosinophils # 0.3 10^3/uL (0.0-0.8); Hematocrit 49.9 % (37-53); Lymphocytes # 2.1 10^3/uL (0.8-4.8); Mean Corpuscular HGB Conc 35.3 g/dL (30-55); Mean Corpuscular Hemoglobin 31.4 pg (27-33); Mean Corpuscular Volume 88.9 fl (82-101); Mean Platelet Volume 12.5 fL (7.4-10.4); Monocytes # 0.5 10^3/uL (0.2-0.9); Monocytes % 5.6 %; Neutrophils # 5.72 10^3/uL (1.8-7.7); Neutrophils % 66.5 %; Nucleated Red Blood Cells % 0 %; Platelet Count 130 10^3/cmm (157-399); Red Blood Count 5.61 10^6/uL (3.85-5.65); Red Cell Distribution Width 12.3 % (12.1-15.1); White Blood Count 8.61 10^3/uL (3.29-11.43)
[2024-05-29] MEDS: valACYclovir 1,000 mg Tablet 1000 MG PO (21:46)
[2024-05-29 21:51] LABS: Alanine Aminotransferase 20 U/L (0-41); Albumin Level 4.2 g/dL (3.5-5.2); Alcohol Level 33 mg/dL (0-10); Alkaline Phosphatase 65 U/L (40-130); Anion Gap 17.4 (5-19); Aspartate Amino Transferase 18 U/L (0-40); Blood Urea Nitrogen 7 mg/dL (6-20); Carbon Dioxide 23 mmol/L (22-29); Chloride 96 mmol/L (98-107); Creatinine Clr Calc Pharmacy 145.7027; Globulin 2.9 g/dL (1.3-4.6); Glucose 112 mg/dL (65-115); Osmolality Calculated 275 mOsm/kg (285-295); Potassium 3.4 mmol/L (3.5-5.1); Sodium 133 mmol/L (136-145); Total Bilirubin 0.4 mg/dL (0.15-1.2); Total Protein 7.1 g/dL (6.6-8.7)
[2024-05-29] MEDS: cefTRIAXone 1,000 mg SDV 1000 MG IVP (22:47)
[2024-05-29] MEDS: orphenadrine 30 mg/mL Inj 2 mL 60 MG IVP (22:47)
[2024-05-29] MEDS: metoclopramide 5 mg/mL SDV 2 mL 10 MG IVP (22:49)
[2024-05-29] MEDS: diphenhydrAMINE 50 mg/mL SDV 1mL IVP (22:53)
== END 2024-05-29 23:09 | disposition home or self-care (01) ==
PROVIDERS: Emergency Provider Emergency Medicine; PCP Family Medicine
DX: G51.0 Bell's palsy (principal); F17.290 Nicotine dependence, other tobacco product, uncomplicated
CPT/HCPCS: 36415; 36416; 70450; 70496; 70498; 80053; 80307; 82962; 85025; 85610; 85730; 86140; 93005; 96374; 96375; 99285; J0696; J1200; J1885; J2360; J2405; J2765; J2919